=== PATIENT | female | born 1955 | race Caucasian/White ===

== ENCOUNTER 2018-02-02 19:57 | Emergency (ER) | payer SELFPAY ==
[~2018-02-02] VITALS: Ht 162.6 cm; Wt 74.5 kg
[~2018-02-02 19:57] MED LIST: CEFT2VIA4 IV; LISI-167 PO; TRAM50TA2 PO
[2018-02-02 21:15] LABS: BASOPHILS # (AUTO) 0.07 x10^3/uL (0-0.1); BASOPHILS % (AUTO) 1 % (0-1); EOSINOPHILS # (AUTO) 0.31 x10^3/uL (0-0.4); EOSINOPHILS % (AUTO) 3 % (1-7); LYMPHOCYTES # (AUTO) 2.77 x10^3/uL (1-3.4); LYMPHOCYTES % (AUTO) 28 % (22-44); MD NO; MEAN CORPUSCULAR HEMOGLOBIN 29.7 pg (27.0-34.8); MEAN CORPUSCULAR HGB CONC 33.6 g/dL (32.4-35.8); MEAN CORPUSCULAR VOLUME 88.6 fL (80-100); MEAN PLATELET VOLUME 7.6 fL (7.4-10.4); MONOCYTES # (AUTO) 0.57 x10^3/uL (0.2-0.8); MONOCYTES % (AUTO) 6 % (2-9); NEUTROPHILS # (AUTO) 6.09 x10^3/uL (1.8-6.8); NEUTROPHILS % (AUTO) 62 % (42-75); PLATELET COUNT 327 x10^3/uL (130-400); RED BLOOD COUNT 4.51 x10^6/uL (3.82-5.3); RED CELL DISTRIBUTION WIDTH 13.6 % (9.6-15.2)
[2018-02-02 21:30] VITALS: BP 191/94
[2018-02-02 21:30] LABS: ALANINE AMINOTRANSFERASE 20 U/L (12-78); ALBUMIN 3.3 g/dL (3.4-5.0); ANION GAP 5 mmol/L (5-15); CALCIUM 8.8 mg/dL (8.5-10.1); CHLORIDE 104 mmol/L (98-107); CREATININE 0.75 mg/dL (0.55-1.02)
[2018-02-02] MEDS ORDERED: ATENOLOL 50 MG TABLET PO ONE (21:31)
[2018-02-02 21:32] LABS: ALKALINE PHOSPHATASE 95 U/L (45-117); BILIRUBIN,TOTAL 0.3 mg/dL (0.2-1.0); TOTAL PROTEIN 7.2 g/dL (6.4-8.2)
[2018-02-02 21:41] LABS: TROPONIN I < 0.015 ng/mL (0.000-0.045)
== END 2018-02-02 22:33 | disposition home or self-care (01) ==
LOC: ED 22:00
DX: I10 Essential (primary) hypertension (principal); Z76.0 Encounter for issue of repeat prescription; F17.200 Nicotine dependence, unspecified, uncomplicated; G43.909 Migraine, unspecified, not intractable, without status migrainosus
CPT/HCPCS: 36415; 80053; 84484; 85025; 93005; 99285

== ENCOUNTER 2018-07-25 18:17 | Emergency (ER) | payer SELFPAY ==
[~2018-07-25] VITALS: Ht 162.6 cm; Wt 71.4 kg
[~2018-07-25 18:17] MED LIST changes: -CEFT2VIA4 IV; +CEFT2VIA53 IV
[2018-07-25 18:52] LABS: BASOPHILS # (AUTO) 0.05 x10^3/uL (0-0.1); BASOPHILS % (AUTO) 1 % (0-1); EOSINOPHILS # (AUTO) 0.28 x10^3/uL (0-0.4); EOSINOPHILS % (AUTO) 3 % (1-7); LYMPHOCYTES # (AUTO) 2.47 x10^3/uL (1-3.4); LYMPHOCYTES % (AUTO) 30 % (22-44); MD NO; MEAN CORPUSCULAR HEMOGLOBIN 30.3 pg (27.0-34.8); MEAN CORPUSCULAR HGB CONC 34.2 g/dL (32.4-35.8); MEAN CORPUSCULAR VOLUME 88.7 fL (80-100); MEAN PLATELET VOLUME 7.7 fL (7.4-10.4); MONOCYTES # (AUTO) 0.57 x10^3/uL (0.2-0.8); MONOCYTES % (AUTO) 7 % (2-9); NEUTROPHILS # (AUTO) 4.91 x10^3/uL (1.8-6.8); NEUTROPHILS % (AUTO) 59 % (42-75); PLATELET COUNT 354 x10^3/uL (130-400); RED BLOOD COUNT 4.65 x10^6/uL (3.82-5.3); RED CELL DISTRIBUTION WIDTH 13.4 % (9.6-15.2)
[2018-07-25 19:04] LABS: ALBUMIN 3.5 g/dL (3.4-5.0); ANION GAP 8 mmol/L (5-15); CALCIUM 8.2 mg/dL (8.5-10.1); CHLORIDE 106 mmol/L (98-107)
[2018-07-25 19:07] LABS: ALANINE AMINOTRANSFERASE 24 U/L (12-78); ALKALINE PHOSPHATASE 94 U/L (45-117); BILIRUBIN,TOTAL 0.3 mg/dL (0.2-1.0); CREATININE 0.81 mg/dL (0.55-1.02); TOTAL PROTEIN 7.6 g/dL (6.4-8.2)
[2018-07-25 19:38] LABS: MICROSCOPIC AUTO
[2018-07-25 19:42] LABS: CULTURE INDICATED? YES
[2018-07-25] MEDS ORDERED: KETOROLAC 30 MG/1 ML ONE (19:56)
[2018-07-25] MEDS ORDERED: KETOROLAC 30 MG/1 ML IM ONE (20:00)
[2018-07-25] MEDS ORDERED: ONDANSETRON ODT 4 MG ONE (20:19)
[2018-07-25] MEDS ORDERED: OXYcodone/APAP 5/325MG TABLET ONE (20:20)
[2018-07-25] MEDS ORDERED: ONDANSETRON ODT 4 MG PO ONE (20:30)
[2018-07-25] MEDS ORDERED: OXYcodone/APAP 5/325MG TABLET PO ONE (20:30)
[2018-07-25 21:33] VITALS: BP 132/83
== END 2018-07-25 21:43 | disposition home or self-care (01) ==
LOC: ED 21:37
DX: M54.5 Low back pain (principal); R31.29 Other microscopic hematuria; F17.210 Nicotine dependence, cigarettes, uncomplicated; G43.909 Migraine, unspecified, not intractable, without status migrainosus; Z87.440 Personal history of urinary (tract) infections; Z87.42 Personal history of other diseases of the female genital tract
CPT/HCPCS: 36415; 74176; 80053; 81001; 85025; 87086; 96372; 99284; J1885; Q0162

== ENCOUNTER 2018-08-05 22:36 | Emergency (ER) | payer SELFPAY ==
[~2018-08-05] VITALS: Ht 154.9 cm; Wt 72.1 kg
[2018-08-05 22:39] VITALS: BP 175/79
[2018-08-05 23:15] LABS: BASOPHILS # (AUTO) 0.06 x10^3/uL (0-0.1); BASOPHILS % (AUTO) 1 % (0-1); EOSINOPHILS % (AUTO) 3 % (1-7); LYMPHOCYTES % (AUTO) 31 % (22-44); MD NO; MEAN CORPUSCULAR HEMOGLOBIN 30.3 pg (27.0-34.8); MEAN CORPUSCULAR HGB CONC 34.1 g/dL (32.4-35.8); MEAN CORPUSCULAR VOLUME 88.8 fL (80-100); MEAN PLATELET VOLUME 7.6 fL (7.4-10.4); MONOCYTES # (AUTO) 0.55 x10^3/uL (0.2-0.8); MONOCYTES % (AUTO) 6 % (2-9); NEUTROPHILS # (AUTO) 5.47 x10^3/uL (1.8-6.8); NEUTROPHILS % (AUTO) 60 % (42-75); PLATELET COUNT 340 x10^3/uL (130-400); RED BLOOD COUNT 4.61 x10^6/uL (3.82-5.3); RED CELL DISTRIBUTION WIDTH 13.1 % (9.6-15.2)
[2018-08-05 23:28] LABS: ALANINE AMINOTRANSFERASE 21 U/L (12-78); ALBUMIN 3.6 g/dL (3.4-5.0); ANION GAP 8 mmol/L (5-15); CALCIUM 8.8 mg/dL (8.5-10.1); CHLORIDE 107 mmol/L (98-107); CREATININE 0.74 mg/dL (0.55-1.02)
[2018-08-05 23:30] LABS: ALKALINE PHOSPHATASE 90 U/L (45-117); BILIRUBIN,TOTAL 0.4 mg/dL (0.2-1.0); TOTAL PROTEIN 7.7 g/dL (6.4-8.2)
[2018-08-05] MEDS ORDERED: KETOROLAC 30 MG/1 ML IM ONE (23:30)
[2018-08-05] MEDS ORDERED: DIAZEPAM 5 MG TABLET PO ONE (23:30)
[2018-08-05] MEDS ORDERED: DIAZEPAM 5 MG TABLET ONE (23:41)
[2018-08-05] MEDS ORDERED: KETOROLAC 30 MG/1 ML ONE (23:41)
[2018-08-05 23:48] LABS: MICROSCOPIC AUTO
[2018-08-05 23:49] LABS: CULTURE INDICATED? NO
== END 2018-08-06 00:36 | disposition home or self-care (01) ==
LOC: ED 23:31
DX: M54.5 Low back pain (principal); R10.32 Left lower quadrant pain; I10 Essential (primary) hypertension; Z90.710 Acquired absence of both cervix and uterus; Z90.89 Acquired absence of other organs
CPT/HCPCS: 36415; 80053; 81001; 83690; 85025; 96372; 99283; J1885

== ENCOUNTER 2018-08-27 10:47 | Inpatient (IN) | payer OTHER ==
[~2018-08-27] VITALS: Ht 162.6 cm; Wt 70.0 kg
[2018-08-27] MEDS ORDERED: ATEN25TA PO (11:11)
[2018-08-27] MEDS ORDERED: ACETAMINOPHEN 500 MG TABLET ONE (11:15)
[2018-08-27 11:20] LABS: MICROSCOPIC INDICATED
[2018-08-27 11:21] LABS: CULTURE INDICATED? YES
[2018-08-27] MEDS ORDERED: ACETAMINOPHEN 500 MG TABLET PO ONE (11:30)
--- NOTE | 2018-08-27 11:53 | NUR ---
REPORT TO TANNER DIGGS
[2018-08-27 11:54] LABS: MEAN CORPUSCULAR HEMOGLOBIN 30.5 pg (27.0-34.8); MEAN CORPUSCULAR HGB CONC 34.3 g/dL (32.4-35.8); MEAN CORPUSCULAR VOLUME 89.1 fL (80-100); MEAN PLATELET VOLUME 8.1 fL (7.4-10.4); PLATELET COUNT 288 x10^3/uL (130-400); RED BLOOD COUNT 4.75 x10^6/uL (3.82-5.3); RED CELL DISTRIBUTION WIDTH 13.2 % (9.6-15.2)
[2018-08-27 12:08] LABS: ALANINE AMINOTRANSFERASE 19 U/L (12-78); ALBUMIN 3.8 g/dL (3.4-5.0); ANION GAP 9 mmol/L (5-15); CHLORIDE 104 mmol/L (98-107); CREATININE 0.82 mg/dL (0.55-1.02)
[2018-08-27 12:10] LABS: RAPID INFLUENZA A Negative (Negative); RAPID INFLUENZA B Negative (Negative)
[2018-08-27 12:11] LABS: ALKALINE PHOSPHATASE 98 U/L (45-117); BILIRUBIN,TOTAL 0.6 mg/dL (0.2-1.0); TOTAL PROTEIN 7.9 g/dL (6.4-8.2)
[2018-08-27] MEDS ORDERED: POTASSIUM CHLORIDE 20 MEQ TAB.ER.PRT PO ONE (12:30)
[2018-08-27] MEDS ORDERED: CEFTRIAXONE PMX 1GM/50ML 50 ML IV ONE (12:30)
--- NOTE | 2018-08-27 12:30 | NUR ---
Report to DONTAE Jones.
[2018-08-27 12:47] LABS: MD YES
[2018-08-27 12:49] LABS: <PLATELET ESTIMATE> ADEQUATE; <RBC MORPHOLOGY> NORMAL; BAND#(MANUAL) 1.53 x10^3/uL; BANDS%(MANUAL) 8 % (0-7); LARGE PLATELETS 1+; LYMPH#(MANUAL) 1.15 x10^3/uL (1-3.4); LYMPHS% (MANUAL) 6 % (22-44); MONOS#(MANUAL) 0.38 x10^3/uL (0.3-2.7); MONOS% (MANUAL) 2 % (2-9); SEG#(MANUAL) 16.04 x10^3/uL (1.8-6.8); SEGS% (MANUAL) 84 % (42-75)
[2018-08-27] MEDS ORDERED: morphine SULFATE 10 MG/ML, 1ML IVPush PRN (13:00)
[2018-08-27] MEDS ORDERED: IBUPROFEN 600 MG TABLET PO PRN (13:00)
[2018-08-27] MEDS ORDERED: GABAPENTIN 300 MG CAPSULE PO PRN (13:00)
[2018-08-27] MEDS ORDERED: LIDODERM 5% PATCH TD PRN (13:00)
[2018-08-27] MEDS ORDERED: hydrALAzine 20 MG/ML, 1ML IVPush PRN (13:00)
[2018-08-27 13:04] VITALS: BP 113/67
[2018-08-27] MEDS: CEFTRIAXONE PMX 1GM/50ML 50 ML IV SCH (13:55)
[2018-08-27] MEDS: D5%-0.45NACL+KCL 20MEQ 1,000 ML IV SCH ×2 (13:55→23:35)
[2018-08-27 14:00] VITALS: BP 113/67
[2018-08-27] MEDS: OXYcodone IR 5MG TABLET PO PRN ×2 (15:31→23:33)
[2018-08-27 19:58] VITALS: BP 140/64
[2018-08-27] MEDS: ACETAMINOPHEN 325 MG TABLET PO PRN (20:16)
[2018-08-27] MEDS: ENOXAPARIN 40 MG/0.4 ML SQ SCH (20:17)
[2018-08-27] MEDS: KETOROLAC 30 MG/1 ML IV PRN (20:48)
[2018-08-27 23:24] VITALS: BP 118/72
[2018-08-28] VITALS (8 sets, daily range): BP systolic 72–151; BP diastolic 41–77
[2018-08-28] MEDS: ACETAMINOPHEN 325 MG TABLET PO PRN (00:17)
[2018-08-28] MEDS ORDERED: SODIUM CHLORIDE 0.9%, 500ML IVBOLUS ONE (02:30)
[2018-08-28] MEDS ORDERED: CALCIUM CARBONATE 500 MG TAB.CHEW PO PRN (05:00)
[2018-08-28] MEDS: KETOROLAC 30 MG/1 ML IV PRN (06:52)
[2018-08-28 08:07] LABS: ANION GAP 8 mmol/L (5-15); CALCIUM 7.9 mg/dL (8.5-10.1); CHLORIDE 108 mmol/L (98-107); CREATININE 1.28 mg/dL (0.55-1.02)
[2018-08-28 08:12] LABS: MEAN CORPUSCULAR HEMOGLOBIN 29.8 pg (27.0-34.8); MEAN CORPUSCULAR HGB CONC 33.2 g/dL (32.4-35.8); MEAN CORPUSCULAR VOLUME 89.6 fL (80-100); MEAN PLATELET VOLUME 7.7 fL (7.4-10.4); PLATELET COUNT 232 x10^3/uL (130-400); RED BLOOD COUNT 3.81 x10^6/uL (3.82-5.3); RED CELL DISTRIBUTION WIDTH 13.4 % (9.6-15.2)
[2018-08-28 08:51] LABS: MD YES
[2018-08-28 08:52] LABS: BAND#(MANUAL) 0.18 x10^3/uL; BANDS%(MANUAL) 1 % (0-7); LYMPH#(MANUAL) 3.92 x10^3/uL (1-3.4); LYMPHS% (MANUAL) 22 % (22-44); MONOS#(MANUAL) 0.53 x10^3/uL (0.3-2.7); MONOS% (MANUAL) 3 % (2-9); SEG#(MANUAL) 13.17 x10^3/uL (1.8-6.8); SEGS% (MANUAL) 74 % (42-75)
[2018-08-28 08:53] LABS: <PLATELET ESTIMATE> ADEQUATE; <PLT MORPHOLOGY> NORMAL PLT MORPH; <RBC MORPHOLOGY> NORMAL
[2018-08-28] MEDS: CEFTRIAXONE PMX 1GM/50ML 50 ML IV SCH (09:34)
[2018-08-28] MEDS: FAMOTIDINE 20 MG TABLET PO SCH ×2 (10:14→21:00)
[2018-08-28] MEDS ORDERED: LACTATED RINGERS 1,000 ML IVBOLUS PRN (10:30)
[2018-08-28] MEDS: D5%-0.45NACL+KCL 20MEQ 1,000 ML IV SCH ×2 (10:40→21:06)
[2018-08-28] MEDS: OXYcodone IR 5MG TABLET PO PRN ×2 (16:48→17:29)
[2018-08-28] MEDS: ENOXAPARIN 40 MG/0.4 ML SQ SCH (20:00)
[2018-08-28] MEDS ORDERED: ONDANSETRON 2MG/ML, 2ML IVPush PRN (21:00)
[2018-08-28] MEDS ORDERED: ONDANSETRON 2MG/ML, 2ML ONE (21:00)
[2018-08-29 00:26] VITALS: BP 113/67
[2018-08-29 06:09] LABS: BASOPHILS # (AUTO) 0.05 x10^3/uL (0-0.1); BASOPHILS % (AUTO) 1 % (0-1); EOSINOPHILS # (AUTO) 0.27 x10^3/uL (0-0.4); EOSINOPHILS % (AUTO) 3 % (1-7); LYMPHOCYTES # (AUTO) 2.08 x10^3/uL (1-3.4); LYMPHOCYTES % (AUTO) 20 % (22-44); MD NO; MEAN CORPUSCULAR HEMOGLOBIN 30.3 pg (27.0-34.8); MEAN CORPUSCULAR HGB CONC 33.6 g/dL (32.4-35.8); MEAN PLATELET VOLUME 8.2 fL (7.4-10.4); MONOCYTES # (AUTO) 0.91 x10^3/uL (0.2-0.8); MONOCYTES % (AUTO) 9 % (2-9); NEUTROPHILS # (AUTO) 6.98 x10^3/uL (1.8-6.8); NEUTROPHILS % (AUTO) 68 % (42-75); PLATELET COUNT 257 x10^3/uL (130-400); RED CELL DISTRIBUTION WIDTH 13.5 % (9.6-15.2)
[2018-08-29 06:17] LABS: ANION GAP 6 mmol/L (5-15); CALCIUM 7.8 mg/dL (8.5-10.1); CHLORIDE 109 mmol/L (98-107)
[2018-08-29 07:57] VITALS: BP 141/63
[2018-08-29] MEDS: D5%-0.45NACL+KCL 20MEQ 1,000 ML IV SCH ×2 (08:00→21:57)
[2018-08-29] MEDS: KETOROLAC 30 MG/1 ML IVPush SCH ×3 (09:30→21:30)
[2018-08-29] MEDS: FAMOTIDINE 20 MG TABLET PO SCH ×2 (10:30→21:57)
[2018-08-29] MEDS: CEFTRIAXONE PMX 1GM/50ML 50 ML IV SCH (10:30)
[2018-08-29] MEDS ORDERED: CEFTRIAXONE PMX 2GM/50ML 50 ML IV SCH (11:00)
[2018-08-29 13:56] VITALS: BP 147/70
[2018-08-29] MEDS: ACETAMINOPHEN 325 MG TABLET PO PRN (15:44)
[2018-08-29 19:03] VITALS: BP 183/79
[2018-08-29] MEDS: OXYcodone IR 5MG TABLET PO PRN (19:35)
[2018-08-29] MEDS: ENOXAPARIN 40 MG/0.4 ML SQ SCH (21:57)
[2018-08-29 22:53] VITALS: BP 128/81
[2018-08-30 01:19] VITALS: BP 154/62
[2018-08-30] MEDS: KETOROLAC 30 MG/1 ML IVPush SCH ×2 (03:31→09:28)
[2018-08-30 05:00] LABS: BASOPHILS # (AUTO) 0.04 x10^3/uL (0-0.1); BASOPHILS % (AUTO) 1 % (0-1); EOSINOPHILS # (AUTO) 0.33 x10^3/uL (0-0.4); EOSINOPHILS % (AUTO) 4 % (1-7); LYMPHOCYTES # (AUTO) 1.74 x10^3/uL (1-3.4); LYMPHOCYTES % (AUTO) 23 % (22-44); MD NO; MEAN CORPUSCULAR HEMOGLOBIN 30.3 pg (27.0-34.8); MEAN CORPUSCULAR HGB CONC 33.9 g/dL (32.4-35.8); MEAN CORPUSCULAR VOLUME 89.3 fL (80-100); MEAN PLATELET VOLUME 7.9 fL (7.4-10.4); MONOCYTES # (AUTO) 0.74 x10^3/uL (0.2-0.8); MONOCYTES % (AUTO) 10 % (2-9); NEUTROPHILS # (AUTO) 4.83 x10^3/uL (1.8-6.8); NEUTROPHILS % (AUTO) 63 % (42-75); PLATELET COUNT 257 x10^3/uL (130-400); RED BLOOD COUNT 3.81 x10^6/uL (3.82-5.3); RED CELL DISTRIBUTION WIDTH 13.3 % (9.6-15.2)
[2018-08-30 05:13] LABS: ALBUMIN 2.6 g/dL (3.4-5.0); ANION GAP 4 mmol/L (5-15); CALCIUM 7.9 mg/dL (8.5-10.1); CHLORIDE 108 mmol/L (98-107); CREATININE 0.66 mg/dL (0.55-1.02)
[2018-08-30] MEDS: D5%-0.45NACL+KCL 20MEQ 1,000 ML IV SCH (08:30)
[2018-08-30] MEDS ORDERED: SULF1TAB24 PO (08:59)
[2018-08-30 09:22] VITALS: BP 148/83
[2018-08-30] MEDS: FAMOTIDINE 20 MG TABLET PO SCH (09:28)
== END 2018-08-30 11:10 | disposition home or self-care (01) | DRG 872 ==
LOC: ED 11:13 → EDIP 12:12 → 3NE 13:22 → DCLOUNGE 08-30 10:56
PROVIDERS: ADMIT Internal Medicine; ATTEND Hospitalist
DX: A41.51 Sepsis due to Escherichia coli [E. coli] (principal); N12 Tubulo-interstitial nephritis, not specified as acute or chronic; N17.9 Acute kidney failure, unspecified; F17.210 Nicotine dependence, cigarettes, uncomplicated; F32.9 Major depressive disorder, single episode, unspecified; I10 Essential (primary) hypertension; G43.909 Migraine, unspecified, not intractable, without status migrainosus; M51.36 Other intervertebral disc degeneration, lumbar region; Z90.49 Acquired absence of other specified parts of digestive tract; Z82.49 Family history of ischemic heart disease and other diseases of the circulatory system; Z87.440 Personal history of urinary (tract) infections; Z90.710 Acquired absence of both cervix and uterus; Z71.6 Tobacco abuse counseling
CPT/HCPCS: 36415; 71045; 72148; 76770; 80048; 80053; 81001; 82040; 83605; 83735; 84100; 85025; 87040; 87077; 87086; 87186; 87400; 93005; 99285; G0378; J0696; J1650; J1885; J2405; J2270; J3480; J7040